=== PATIENT | male | born 1970 | race Caucasian/White ===

== ENCOUNTER 2020-09-03 14:32 | Outpatient (CLI) | payer BC | END 2020-09-03 14:33 | disposition home or self-care (01) | LOC: SCSMRI 14:32 | PROVIDERS: ATTEND Orthopaedic Surgery | DX: M23.91 Unspecified internal derangement of right knee (principal); S83.231A Complex tear of medial meniscus, current injury, right knee, initial encounter; R60.0 Localized edema ==